=== PATIENT | female | born 1995 | race Two or more races ===

== ENCOUNTER 2022-07-21 18:26 | Emergency (ER) | payer OTHER ==
[~2022-07-21] VITALS: Ht 160 cm; Wt 49.9 kg
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
[2022-07-21] MEDS ORDERED: METHOCARBAMOL (750MG) 750 MG TABLET PO SCH (19:30)
--- NOTE | 2022-07-21 19:45 | NUR ---
X-RAY TECH AT BEDSIDE
[2022-07-21] MEDS ORDERED: METH-647 PO (21:28)
--- NOTE | 2022-07-21 21:45 | NUR ---
Patient discharged to home in stable condition. Written and verbal after care instructions given. Patient verbalizes understanding of instruction.
[2022-07-21 22:43] VITALS: BP 115/65
== END 2022-07-21 21:45 | disposition home or self-care (01) ==
LOC: ER 18:39
DX: M79.645 Pain in left finger(s) (principal); Z79.899 Other long term (current) drug therapy
CPT/HCPCS: 73140-TC